=== PATIENT | male | born 1975 | race Two or more races ===

== ENCOUNTER 2022-09-19 18:51 | Emergency (ER) | payer MEDICAID ==
[~2022-09-19] VITALS: Ht 175.3 cm; Wt 75.0 kg
[2022-09-20] MEDS ORDERED: IBUPROFEN 600MG TABLET PO ONE (04:30)
[2022-09-20] MEDS ORDERED: CEPH500C2 MT (04:45)
[2022-09-20] MEDS ORDERED: IBUP-2029 MT (04:45)
[2022-09-20 05:42] VITALS: BP 116/66
== END 2022-09-20 05:46 | disposition home or self-care (01) ==
LOC: ER 19:46
DX: I86.1 Scrotal varices (principal); K40.90 Unilateral inguinal hernia, without obstruction or gangrene, not specified as recurrent; N50.811 Right testicular pain; F20.9 Schizophrenia, unspecified
CPT/HCPCS: 76870; 93976; 99284

== ENCOUNTER 2022-09-27 19:08 | Emergency (ER) | payer MEDICAID ==
[~2022-09-27] VITALS: Ht 170.2 cm; Wt 73.0 kg
[~2022-09-27 19:08] MED LIST: CEPH500C2 MT; IBUP-2029 MT
[2022-09-27 19:21] VITALS: BP 147/68
== END 2022-09-27 23:00 | disposition left against medical advice (07) ==
LOC: ER 19:08
DX: Z53.21 Procedure and treatment not carried out due to patient leaving prior to being seen by health care provider (principal); F20.9 Schizophrenia, unspecified

== ENCOUNTER 2022-09-28 05:16 | Emergency (ER) | payer MEDICAID ==
[~2022-09-28] VITALS: Ht 180.3 cm; Wt 73.0 kg
[2022-09-28 10:46] LABS: BASOPHILS % 0.7 % (0.0-2.0); EOSINOPHILS % 2.7 % (0.0-5.0); HEMATOCRIT. 41.5 % (42.0-52.0); HEMOGLOBIN. 14.3 g/dL (14.0-18.0); LYMPHOCYTES % 31.1 % (20.0-50.0); MEAN CORPUSCULAR HEMOGLOBIN 30.1 pg (28.0-32.0); MEAN CORPUSCULAR VOLUME 87.6 fL (80.0-94.0); MEAN PLATELET VOLUME 7.6 fl (7.4-10.4); MONOCYTES % 4.9 % (2.0-8.0); NEUTROPHILS % 60.6 % (40.0-76.0); PLATELET 294 x1000/uL (130-400); RED BLOOD CELL COUNT 4.74 mill/uL (4.7-6.1); RED CELL DISTRIBUTION WIDTH 13.6 % (11.6-14.6)
[2022-09-28 10:48] LABS: CHLORIDE 106 mEq/L (98-107)
[2022-09-28 10:53] LABS: ETHANOL BLOOD < 10 mg/dL
[2022-09-28] MEDS: FLUOXETINE HCL 10 MG CAPSULE PO SCH (12:42)
[2022-09-28] MEDS: QUETIAPINE FUMARATE 50MG TABLET PO SCH ×2 (12:42→21:00)
[2022-09-28 16:58] LABS: CLARITY URINE CLEAR (CLEAR); COLOR URINE YELLOW (YELLOW); KETONES URINE NEGATIVE (NEGATIVE); LEUKOCYTE ESTERASE URINE NEGATIVE (NEGATIVE); NITRITE URINE NEGATIVE (NEGATIVE); OCCULT BLOOD URINE NEGATIVE (NEGATIVE); PH URINE 7.5 (4.5-8.0); PROTEIN URINE NEGATIVE (NEGATIVE); SPECIFIC GRAVITY URINE 1.012 (1.005-1.030); UROBILINOGEN URINE 0.2 E.U./dL (0.2-1.0)
[2022-09-28 17:08] LABS: *AMPHETAMINES SCREEN URINE PRESUMTIVE POSITIVE (NEGATIVE); *BARBITURATES SCREEN URINE NEGATIVE (NEGATIVE); *BENZODIAZEPINES SCREEN URINE NEGATIVE (NEGATIVE); *COCAINE SCREEN URINE NEGATIVE (NEGATIVE); CANNABINOID URINE SCREEN NEGATIVE (NEGATIVE); METHADONE URINE SCREEN NEGATIVE (NEGATIVE); OPIATES URINE SCREEN NEGATIVE (NEGATIVE); PHENCYCLIDINE URINE SCREEN NEGATIVE (NEGATIVE)
[2022-09-28] MEDS ORDERED: IBUPROFEN 400MG TABLET PO ONE (23:30)
[2022-09-29] MEDS: FLUOXETINE HCL 10 MG CAPSULE PO SCH (09:01)
[2022-09-29] MEDS: QUETIAPINE FUMARATE 50MG TABLET PO SCH ×2 (09:04→21:00)
[2022-09-30] MEDS: FLUOXETINE HCL 10 MG CAPSULE PO SCH (09:00)
[2022-09-30] MEDS: QUETIAPINE FUMARATE 50MG TABLET PO SCH (09:00)
[2022-09-30 10:00] VITALS: BP 112/73
== END 2022-09-30 13:29 | disposition home or self-care (01) ==
LOC: ER 05:16
DX: R44.0 Auditory hallucinations (principal); Z20.822 Contact with and (suspected) exposure to COVID-19; Z86.59 Personal history of other mental and behavioral disorders
CPT/HCPCS: 36415; 80048; 80305; 80307; 80320; 80329; 81003; 85025; 87426; 99285; C9803; Z7610; G0480